=== PATIENT | male | born 1995 | race Two or more races ===

== ENCOUNTER → 2020-08-09 | Day surgery (SDC) | payer OTHER ==
[~2020-08-09] MED LIST: ULTRAM50 MG PO
== END | disposition home or self-care (01) ==
LOC: ADM 08-03 08:15 → CIR.AMB 08:05
PROVIDERS: ATTEND Surgery
DX: N47.1 Phimosis (principal); Z20.828 Contact with and (suspected) exposure to other viral communicable diseases